=== PATIENT | male | born 1985 | race Caucasian/White ===

== ENCOUNTER 2019-09-12 21:44 | Emergency (ER) | payer SELFPAY ==
[~2019-09-12] VITALS: Ht 185 cm; Wt 75.0 kg
[2019-09-12 21:50] VITALS: BP 155/98
--- NOTE | 2019-09-12 22:03 | ED Upper Extremity ---
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 AT WORK YESTERDAY AND HURT ALL DAY TODAY AT WORK, AND LEFT WORK AND CAME HERE STATES HE HAS BEEN TENDERIZING STEAK, LIFTING SHORT BASKETS AND TWISTING HIS WRIST NO SPECIFIC INJURY/DIRECT TRAUMA NO PARESTHESIAS OR MOTOR DEFICITS NO PRIOR HISTORY OF SIMILAR PT IS RIGHT HANDED, NO PRIOR INJURY TO THIS HAND/WRIST/ARM PT RATES PAIN 01/10, BUT HAS NOT TAKEN ANYTHING FOR PAIN, HAS NOT APPLIED ICE OR DONE ANYTHING TO HELP WITH PAIN PCP: NONE Allergies and Home Medications Allergies Coded Allergies: No Known Drug Allergies (Unverified , 09/05/19) Home Medications Naproxen 500 Mg Tablet, 500 MG PO BID Prescribed by: ROB KRAUSE on 09/12/194 Patient Home Medication List Home Medication List Reviewed: Yes Review of Systems Constitutional: no symptoms reported Respiratory: no symptoms reported Cardiovascular: no symptoms reported Musculoskeletal: see HPI Skin: no symptoms reported; No rash Psychiatric/Neurological: No Symptoms Reported; Denies Numbness, Denies Paresthesia, Denies Tingling, Denies Weakness Past Bqtfeev-Wcbwxh-Guxjtm Hx Past Med/Social Hx: Reviewed and Corrections made Patient Social History Alcohol Use: Occasionally Uses Recreational Drug Use: Yes (THC) Drug of Choice: CANNIBUS Smoking Status: Current Everyday Smoker (1 PPD) Type Used: Cigarettes 2nd Hand Smoke Exposure: Yes Recent Foreign Travel: No Contact w/Someone Who Travel: No Recent Hopitalizations: No Immunizations Up To Date Tetanus Booster (TDap): More than 5yrs Seasonal Allergies Seasonal Allergies: No Past Medical History Surgeries: No Respiratory: No Cardiac: No Neurological: No Genitourinary: No Gastrointestinal: No Musculoskeletal: No Endocrine: No HEENT: No Cancer: No Psychosocial: No Integumentary: No Blood Disorders: No Physical Exam Vital Signs Vital Signs - First Documented 09/12/19 21:50 Temp 37.1 Pulse 89 Resp 20 B/P (MAP) 155/98 (117) Pulse Ox 98 O2 Delivery Room Air Capillary Refill : Height, Weight, BMI Height: 6'1.00" Weight: 165lbs. oz. 74.331257jx; BMI Method:Stated General Appearance: WD/WN, no apparent distress Shoulder: normal inspection Elbow/Forearm: Right (DISTAL FOREARM, RADIAL ASPECT WITH MILD SWELLING, ERYTHEMA AND TENDERNESS. LIMITED ROM DUE TO PAIN, DISTAL MOTOR/SENSORY/VASCULAR INTACT. ), bone tenderness, limited ROM, pain, soft tissue tenderness, swelling Wrist: Yes bone tenderness, Yes limited ROM, Yes pain, Yes soft tissue tenderness, Yes swelling Hand: normal inspection, non-tender, no evidence of injury, normal ROM Neurologic/Tendon: normal sensation, normal motor functions, normal tendon functions Neurologic/Psychiatric: template fitter II-XII nml as tested, no motor/sensory deficits, alert, normal mood/affect, oriented x 3 Skin: normal color, warm/dry; No rash; tattoos/piercings (MULTIPLE TATTOOS) Procedures/Interventions Suture Size: 5-0 Splinting and Joint Reduction : Splints: [place] Wrist Progress/Results/Core Measures Results/Orders My Orders Orders - NELIDA,ROB K DO Forearm, Right, 2 Views (09/12/19 21:57) Wrist, Right, 3 Views Or More (09/12/19 21:57) Wrist-[place] (09/12/19 22:20) Rx-Naproxen (Rx-Naprosyn) (09/12/19 22:20) Vital Signs/I&O 09/12/19 21:50 Temp 37.1 Pulse 89 Resp 20 B/P (MAP) 155/98 (117) Pulse Ox 98 O2 Delivery Room Air Diagnostic Imaging Comments XRAYS RIGHT WRIST AND FOREARM--MILD SOFT TISSUE SWELLING OTHERWISE NO ACUTE PROCESS, PENDING RADIOLOGIST REVIEW Reviewed: Reviewed by Me Departure Impression Primary Impression: Strain of right wrist Disposition: HOME, SELF-CARE Condition: Stable Departure-Patient Inst. Referrals: NO,LOCAL PHYSICIAN (PCP) Primary Care Physician CHELSI TAYLOR MD Patient Instructions: SPLINT CARE, Wrist Sprain (DC) Add. Discharge Instructions: ICE TO AREA AT 20 MINUTE INTERVALS ELEVATE HAND MUCH POSSIBLE WEAR SPLINT AT ALL TIMES FOLLOW UP WITH DR. TAYLOR THIS WEEK FOR FURTHER CARE--CALL IN AM FOR APPOINTMENT All discharge instructions reviewed with patient and/or family. Voiced understanding. Scripts Naproxen (Naprosyn) 500 Mg Tablet 500 MG PO BID, #30 TAB 0 Refills Prov: ROB KRAUSE DO 09/12/19 ROB KRAUSE DO September 12, 2019 22:03
[2019-09-12] MEDS ORDERED: RX-NAPROXEN (NAPROSYN) 250 MG TAB PPK#4 PO STA (22:20)
[2019-09-12] MEDS ORDERED: NAPR-1071 PO (22:24)
--- NOTE | 2019-09-13 07:20 | Diagnostic Imaging Report ---
INDICATION: Right wrist pain for one day. No known injuries EXAMINATION: Right forearm from 09/12/2019 2 views of the forearm FINDINGS: There is no evidence for an acute fracture or dislocation. The joint spaces are well maintained. There is no significant soft tissue swelling. IMPRESSION: No acute process. Dictated by: Dictated on workstation # [id number]
--- NOTE | 2019-09-13 07:23 | Diagnostic Imaging Report ---
INDICATION: Right wrist pain for a day no known injuries EXAMINATION: Right wrist from 09/12/2019 FINDINGS: There is no evidence for an acute fracture or dislocation. The joint spaces are well maintained. There is no significant soft tissue swelling. IMPRESSION: No acute process. Dictated by: Dictated on workstation # [id number]
== END 2019-09-12 22:34 | disposition home or self-care (01) ==
LOC: EDUNIT# 21:44 → ER 21:46
DX: S66.911A Strain of unspecified muscle, fascia and tendon at wrist and hand level, right hand, initial encounter (principal); F17.210 Nicotine dependence, cigarettes, uncomplicated; X50.1XXA Overexertion from prolonged static or awkward postures, initial encounter; Y92.59 Other trade areas as the place of occurrence of the external cause
CPT/HCPCS: 73090; 73110

== ENCOUNTER 2021-02-12 17:51 | Emergency (ER) | payer BC ==
[~2021-02-12] VITALS: Ht 185 cm; Wt 95.9 kg
[~2021-02-12 17:51] MED LIST: NAPR-1071 PO
--- NOTE | 2021-02-12 18:19 | ED Abdominal Pain ---
General Chief Complaint: Abdominal/GI Problems Stated Complaint: ABD PAIN Nursing Triage Note: AMB TO ROOM FROM [facility] TO R/O APPY. PATIENT REPORTS THAT HAS INTERMITTEN R SIDE PAIN SINCE WEDNESDAY NO VOMITING. IS ABLE TO EAT . ATE CHICKEN SANDWICH FOR LUNCH Source of Information: Patient Exam Limitations: No Limitations (TYLER MACARIO APRN) History of Present Illness Date Seen by Provider: Feb 12, 2021 Time Seen by Provider: 18:18 Initial Comments To ER by private vehicle from [facility] with reports of right-sided lower abdominal pain for 4 days without nausea or vomiting though he has been little constipated. No fevers or chills. Pain is worsened by bending over and twisting. 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 Timing/Duration: 3-4 Days Severity/Quality: Moderate Location: [facility] Radiation: No Radiation Activities at Onset: None Associated Symptoms: Denies Symptoms (TYLER MACARIO APRN) Allergies and Home Medications Allergies Coded Allergies: No Known Drug Allergies (Unverified , 09/05/19) Patient Home Medication List Home Medication List Reviewed: Yes (TYLER MACARIO APRN) Naproxen (Naprosyn) 500 Mg Tablet, 500 MG PO BID Prescribed by: ROB KRAUSE on 09/12/192223 Review of Systems Review of Systems Constitutional: see HPI EENTM: No Symptoms Reported Respiratory: No Symptoms Reported Cardiovascular: See HPI Gastrointestinal: See HPI, Abdominal Pain Genitourinary: No Symptoms Reported Musculoskeletal: no symptoms reported Skin: no symptoms reported Psychiatric/Neurological: No Symptoms Reported Endocrine: No Symptoms Reported (TYLER MACARIO APRN) Past Rmziszk-Ljcbot-Isysej Hx Patient Social History Tobacco Use?: Yes Substance use?: Yes Substance type: Marijuana Alcohol Use?: Yes Alcohol Frequency: Rarely Pt feels they are or have been: No (TYLER MACARIO APRN) Immunizations Up To Date Tetanus Booster (TDap): More than 5yrs First/Initial COVID19 Vaccinat: JULY Second COVID19 Vaccination Eliel: AUGUST COVID19 Vaccine Hazardous Waste Material Technician: NEO (TYLER MACARIO APRN) Seasonal Allergies Seasonal Allergies: No (TYLER MACARIO APRN) Past Medical History Surgeries: No Respiratory: No Cardiac: No Neurological: No Genitourinary: No Gastrointestinal: No Musculoskeletal: No Endocrine: No HEENT: No Cancer: No Psychosocial: No Integumentary: No Blood Disorders: No (TYLER MACARIO APRN) Physical Exam Vital Signs Vital Signs - First Documented 02/12/21 17:55 Temp 37.5 Pulse 73 Resp 18 B/P (MAP) 148/100 (116) Pulse Ox 99 O2 Delivery Room Air (NELIDA,ROB K DO) Vital Signs Capillary Refill : Less Than 3 Seconds (TYLER MACARIO APRN) Height/Weight/BMI Height: 6'1.00" Weight: 165lbs. oz. 74.642817mb; 28.00 BMI Method:Stated General Appearance: WD/WN, no apparent distress HEENT: PERRL/EOMI, normal ENT inspection Respiratory: no respiratory distress, no accessory muscle use Gastrointestinal: normal bowel sounds, soft Extremities: normal range of motion, non-tender Neurologic/Psychiatric: alert, normal mood/affect, oriented x 3 Skin: normal color, warm/dry (TYLER MACARIO APRN) Procedures/Interventions Suture Size: 5-0 (TYLER MACARIO APRN) Progress/Results/Core Measures Results/Orders Lab Results Laboratory Tests Test 02/12/21 18:06 02/12/21 18:42 Range/Units White Blood Count 10.6 4.3-11.0 10^3/uL Red Blood Count 4.86 4.30-5.52 10^6/uL Hemoglobin 15.3 13.3-17.7 g/dL Hematocrit 45 40-54 % Mean Corpuscular Volume 93 80-99 fL Mean Corpuscular Hemoglobin 32 25-34 pg Mean Corpuscular Hemoglobin Concent 34 32-36 g/dL Red Cell Distribution Width 12.0 10.0-14.5 % Platelet Count 294 130-400 10^3/uL Mean Platelet Volume 10.4 9.0-12.2 fL Immature Granulocyte % (Auto) 1 % Neutrophils (%) (Auto) 67 42-75 % Lymphocytes (%) (Auto) 23 12-44 % Monocytes (%) (Auto) 7 0-12 % Eosinophils (%) (Auto) 1 0-10 % Basophils (%) (Auto) 0 0-10 % Neutrophils # (Auto) 7.1 1.8-7.8 10^3/uL Lymphocytes # (Auto) 2.5 1.0-4.0 10^3/uL Monocytes # (Auto) 0.8 0.0-1.0 10^3/uL Eosinophils # (Auto) 0.1 0.0-0.3 10^3/uL Basophils # (Auto) 0.0 0.0-0.1 10^3/uL Immature Granulocyte # (Auto) 0.1 0.0-0.1 10^3/uL Sodium Level 138 135-145 MMOL/L Potassium Level 3.9 3.6-5.0 MMOL/L Chloride Level 102 98-107 MMOL/L Carbon Dioxide Level 23 21-32 MMOL/L Anion Gap 13 5-14 MMOL/L Blood Urea Nitrogen 12 7-18 MG/DL Creatinine 0.89 0.60-1.30 MG/DL Estimat Glomerular Filtration Rate 98 BUN/Creatinine Ratio 13 Glucose Level 98 70-105 MG/DL Calcium Level 10.0 8.5-10.1 MG/DL Corrected Calcium 8.5-10.1 MG/DL Total Bilirubin 0.3 0.1-1.0 MG/DL Aspartate Amino Transf (AST/SGOT) 16 5-34 U/L Alanine Aminotransferase (ALT/SGPT) 16 0-55 U/L Alkaline Phosphatase 70 40-136 U/L Total Protein 8.1 6.4-8.2 GM/DL Albumin 4.6 H 3.2-4.5 GM/DL Urine Color YELLOW Urine Clarity CLEAR Urine pH 6.0 5-9 Urine Specific [place] <=1.005 1.016-1.022 Urine Protein NEGATIVE NEGATIVE Urine Glucose (UA) NEGATIVE NEGATIVE Urine Ketones NEGATIVE NEGATIVE Urine Nitrite NEGATIVE NEGATIVE Urine Bilirubin NEGATIVE NEGATIVE Urine Urobilinogen 0.2 < = 1.0 MG/DL Urine Leukocyte Esterase NEGATIVE NEGATIVE Urine RBC (Auto) NEGATIVE NEGATIVE Urine RBC NONE /HPF Urine WBC NONE /HPF Urine Crystals PRESENT H /LPF Urine Amorphous Sediment RARE KEERTHI URATES H /LPF Urine Bacteria NEGATIVE /HPF Urine Casts NONE /LPF Urine Mucus NEGATIVE /LPF Urine Culture Indicated NO (ROB KRAUSE DO) Medications Given in ED Current Medications Medications Dose Ordered Sig/Vic Route Start Time Stop Time Status Last Admin Dose Admin Acetaminophen/ Hydrocodone Bitart 1 ea Q4H PRN PO 02/12/21 20:00 02/12/21 20:01 DC 02/12/21 19:54 1 EA Fentanyl Citrate 50 mcg ONCE ONCE IVP 02/12/21 18:30 02/12/21 18:31 DC 02/12/21 18:38 50 MCG Iohexol 100 ml ONCE ONCE IV 02/12/21 18:30 02/12/21 18:31 DC 02/12/21 18:26 100 ML Sodium Chloride 100 ml ONCE ONCE IV 02/12/21 18:30 02/12/21 18:31 DC 02/12/21 18:26 80 ML (ROB KRAUSE DO) Vital Signs/I&O 02/12/21 02/12/21 17:55 19:57 Temp 37.5 36.6 Pulse 73 68 Resp 18 16 B/P (MAP) 148/100 (116) 124/81 Pulse Ox 99 97 O2 Delivery Room Air Room Air (ROB KRAUSE DO) Blood Pressure Mean: 116 Departure Communication (Admissions) Family Conversation 2047-discussed the case with Dr. Floyd and I will have him follow-up with Dr. Floyd in the office. I do not believe this to represent appendicitis and I discussed this with the patient. Also discussed with him that I could be wrong and if so the pain will worsen and be accompanied by fevers. He agrees to return to ER for any worsening such as fevers intensifying pain nausea vomiting or bowel changes. NAME: SABRINA HARRINGTON [facility] REC#: [id number] PT STATUS: REG ER : 1985 PHYSICIAN: TYLER MACARIO APRN ADMIT DATE: 02/12/21/ER Draft Date of Exam:02/12/21 CT ABD/PELV W (APPENDICITIS) PROCEDURE: CT abdomen and pelvis with contrast, rule out appendicitis. TECHNIQUE: Multiple contiguous axial images were obtained through the abdomen and pelvis after the administration of intravenous contrast. All CT scans use one or more of the following dose optimizing techniques: automated exposure control, MA and/or KvP adjustment based on patient size and exam type or iterative reconstruction. INDICATION: Right lower quadrant pain. FINDINGS: The heart size is normal. The lung bases are clear. The liver is normal in size. There are a few tiny hepatic cysts. Gallbladder is unremarkable. There is no biliary ductal dilatation. Spleen is normal. The pancreas and adrenal glands are unremarkable. Kidneys are normal in appearance. There are some mild nonspecific inflammatory changes in the right lower quadrant. There is no free air. There is no ascites. There is some questionable bladder wall thickening. There is no pelvic mass, adenopathy or free fluid. The osseous structures are unremarkable. IMPRESSION: 1. Nonspecific inflammatory changes in the right lower quadrant just beneath the liver. This does not definitively appear to be reflective of appendicitis. Recommend clinical correlation. 2. Benign hepatic cysts. 3. Questionable bladder wall thickening. The possibility of cystitis cannot be excluded. Recommend clinical correlation. Dictated on workstation # [id number] Dict: 02/12/21 1840 Trans: 02/12/21 190 [facility] [id number] Interpreted by: SHANTA MONTES MD Electronically signed by: (TYLER MACARIO APRN) Impression Primary Impression: Abdominal pain Disposition: HOME, SELF-CARE Condition: Stable Departure-Patient Inst. Decision time for Depature: 19:49 (TYLER MACARIO APRN) Referrals: MICHAEL FLOYD MD NO,LOCAL PHYSICIAN (PCP) Primary Care Physician Patient Instructions: No Instuctions Given Add. Discharge Instructions: 1. Return to ER for any concerns. Follow-up with Dr. Floyd. Call his office tomorrow to make an appointment to be seen. Return to ER for any worsening pain, fever, nausea, vomiting. Pain medication such as naproxen or ibuprofen may be taken in addition to the hydrocodone prescribed. Be aware that the hydrocodone can be constipating so take it as infrequently as possible. Increase water intake. All discharge instructions reviewed with patient and/or family. Voiced understanding. Work/School Note: Work Release Form Date Seen in the Emergency Department: Feb 12, 2021 Return to Work: Feb 15, 2021 ATTENDING PHYSICIAN NOTE: I WAS PHYSICALLY PRESENT ER PHYSICIAN WHEN THIS PATIENT WAS IN ER, BUT I WAS NOT INVOLVED IN DECISION MAKING OR ANY CARE OF THIS PATIENT. (ROB KRAUSE DO) Copy Copies To 1: MICHAEL FLOYD MD, PETER J APRN Feb 12, 2021 18:19 ROB KRAUSE DO Feb 13, 2021 01:49
[2021-02-12 18:22] LABS: BASOPHILS % (AUTO) 0 % (0-10); EOSINOPHILS # (AUTO) 0.1 10^3/uL (0.0-0.3); EOSINOPHILS % (AUTO) 1 % (0-10); HEMATOCRIT 45 % (40-54); HEMOGLOBIN 15.3 g/dL (13.3-17.7); LYMPHOCYTES # (AUTO) 2.5 10^3/uL (1.0-4.0); LYMPHOCYTES % (AUTO) 23 % (12-44); MEAN CORPUSCULAR HEMOGLOBIN 32 pg (25-34); MEAN CORPUSCULAR HGB CONC 34 g/dL (32-36); MEAN CORPUSCULAR VOLUME 93 fL (80-99); MEAN PLATELET VOLUME 10.4 fL (9.0-12.2); MONOCYTES # (AUTO) 0.8 10^3/uL (0.0-1.0); MONOCYTES % (AUTO) 7 % (0-12); NEUTROPHILS # (AUTO) 7.1 10^3/uL (1.8-7.8); NEUTROPHILS % (AUTO) 67 % (42-75); PLATELET COUNT 294 10^3/uL (130-400); WHITE BLOOD COUNT 10.6 10^3/uL (4.3-11.0)
[2021-02-12 18:26] LABS: ALBUMIN 4.6 GM/DL (3.2-4.5)
[2021-02-12 18:27] LABS: CHLORIDE 102 MMOL/L (98-107); POTASSIUM 3.9 MMOL/L (3.6-5.0); SODIUM 138 MMOL/L (135-145)
[2021-02-12 18:29] LABS: GLUCOSE 98 MG/DL (70-105); TOTAL PROTEIN 8.1 GM/DL (6.4-8.2)
[2021-02-12 18:30] LABS: CARBON DIOXIDE 23 MMOL/L (21-32)
[2021-02-12] MEDS ORDERED: NS 100 ML (IVPB) BAG IV ONE (18:30)
[2021-02-12] MEDS ORDERED: fentaNYL INJ 100 MCG/2 ML AMP IVP ONE (18:30)
[2021-02-12] MEDS ORDERED: IOHEXOL 350 MG/ML 100 ML (OMNIPAQUE 350) VIAL IV ONE (18:30)
[2021-02-12] MEDS ORDERED: HOLD METFORMIN - RECEIVED CONTRAST 20 ML VIAL IV SCH (18:30)
[2021-02-12 18:31] LABS: BILIRUBIN,TOTAL 0.3 MG/DL (0.1-1.0)
[2021-02-12 18:33] LABS: ALKALINE PHOSPHATASE 70 U/L (40-136); CREATININE SERUM 0.89 MG/DL (0.60-1.30); GFR ESTIMATED 98
[2021-02-12 18:34] LABS: BUN/CREATININE RATIO 13
[2021-02-12 18:36] LABS: ALANINE AMINOTRANSFERASE 16 U/L (0-55)
[2021-02-12 18:48] LABS: BILIRUBIN,URINE NEGATIVE (NEGATIVE); CLARITY,URINE CLEAR; COLOR,URINE YELLOW; GLUCOSE, URINE (UA) NEGATIVE (NEGATIVE); KETONES,URINE NEGATIVE (NEGATIVE); LEUKOCYTE ESTERASE ,URINE NEGATIVE (NEGATIVE); NITRITE,URINE NEGATIVE (NEGATIVE); PROTEIN,URINE NEGATIVE (NEGATIVE)
--- NOTE | 2021-02-12 19:02 | Diagnostic Imaging Report ---
PROCEDURE: CT abdomen and pelvis with contrast, rule out appendicitis. TECHNIQUE: Multiple contiguous axial images were obtained through the abdomen and pelvis after the administration of intravenous contrast. All CT scans use one or more of the following dose optimizing techniques: automated exposure control, MA and/or KvP adjustment based on patient size and exam type or iterative reconstruction. INDICATION: Right lower quadrant pain. FINDINGS: The heart size is normal. The lung bases are clear. The liver is normal in size. There are a few tiny hepatic cysts. Gallbladder is unremarkable. There is no biliary ductal dilatation. Spleen is normal. The pancreas and adrenal glands are unremarkable. Kidneys are normal in appearance. There are some mild nonspecific inflammatory changes in the right lower quadrant. There is no free air. There is no ascites. There is some questionable bladder wall thickening. There is no pelvic mass, adenopathy or free fluid. The osseous structures are unremarkable. IMPRESSION: 1. Nonspecific inflammatory changes in the right lower quadrant just beneath the liver. This does not definitively appear to be reflective of appendicitis. Recommend clinical correlation. 2. Benign hepatic cysts. 3. Questionable bladder wall thickening. The possibility of cystitis cannot be excluded. Recommend clinical correlation. Dictated by: Dictated on workstation # [id number]
[2021-02-12 19:30] LABS: AMORPHOUS SEDIMENT,UR RARE AMOR URATES /LPF; BACTERIA,URINE NEGATIVE /HPF
[2021-02-12 19:57] VITALS: BP 124/81
== END 2021-02-12 20:01 | disposition home or self-care (01) ==
LOC: EDUNIT# 17:51 → ER 17:54
DX: R10.31 Right lower quadrant pain (principal); Z72.0 Tobacco use
CPT/HCPCS: 36415; 74177; 80053; 81000; 85025